=== PATIENT | female | born 1995 | race Caucasian/White ===

== ENCOUNTER → 2024-08-01 09:56 | Outpatient (REF) | payer OTHER, SELFPAY | LOC: RAD 09:56 | PROVIDERS: ATTENDING PHYSICIAN Internal Medicine Cardiovascular Disease; FAMILY PHYSICIAN Nurse Practitioner | DX: Q24.9 Congenital malformation of heart, unspecified (principal); R06.09 Other forms of dyspnea; Q24.5 Malformation of coronary vessels | CPT/HCPCS: 75574; Q9967 ==

== ENCOUNTER 2024-10-04 08:31 | Emergency (ER) | payer OTHER, SELFPAY ==
[2024-10-04 08:32] VITALS: BP 120/85
[2024-10-04 08:54] VITALS: BMI 24.4
--- NOTE | 2024-10-04 09:19 | ED.GENMED ---
History of Present Illness
General
Chief Complaint: Problems
Time Seen by Provider: 10/04/24 08:48
History of Present Illness
History of Present Illness:
29-year-old female, , presenting to the emergency department for bleeding in . Patient reports that she is about 9 weeks by LMP. She notes about 2 weeks ago she started to have some vaginal spotting. Yesterday noticed some
increased bleeding with wiping, and then today prior to arrival, had increased bleeding, did notice some clots. Notes some mild cramping. Denies any abnormal discharge or urinary symptoms. Blood type unknown. Reports other ,
[id number] at home, no complications with this . Denies additional acute medical complaints.
Phy Exam
Physical Exam
Physical Exam:
General: Well-appearing, no clinical signs of dehydration, nontoxic and in no acute distress
HEENT: protecting airway
Neck: appears supple
CV: Normal heart rate
Resp: No accessory muscle use, no increased work of breathing
Abd: Soft and non-distended, no tenderness to palpation
Extremities: No deformities, no swelling
Neuro: alert, no focal neurologic deficit
: deferred
Rectal: deferred
Psych: Normal affect
Skin: Intact
Course
Orders/Labs/Results
Orders:
Orders
10/04/24 09:11
US W Transvaginal Urgent
Reason For Exam: 9 weeks by date, bleeding
10/04/24 09:17
Blood Group&Type Urgent
Beta HCG Quantitative Urgent
Is this a screen?: No
Complete Blood Count/With Diff Urgent
Comprehensive Metabolic Panel Urgent
10/04/24 09:18
Urinalysis Reflex To Culture Urgent
Date Specimen was Collected: 10/04/24
Time Specimen was Collected: 09:16
Urine Microscopic Reflex Cult Urgent
Abnormal Lab Results
10/04/24 10/04/24
09:17 09:18
Lymphocytes % 18.9 L %
(20.5-51.1)
Glucose 103 H mg/dl
(70-99)
Calcium 10.6 H mg/dl
(8.4-10.2)
Ur Occult Blood Reflex 3+ A
(Negative)
Urine RBC 3-6 A /HPF
(0-2)
10/04/24 09:17
10/04/24 09:17
Vital Signs
Initial and Last Documented VS:
Initial Vital Signs
Temp Pulse Resp BP Pulse Ox
98.0 F 92 16 120/85 98
10/04/24 08:32 10/04/24 08:32 10/04/24 08:32 10/04/24 08:32 10/04/24 08:32
Last Documented Vital Signs
Temp Pulse Resp BP Pulse Ox
98.0 F 92 16 128/76 98
10/04/24 08:32 10/04/24 08:32 10/04/24 08:32 10/04/24 11:13 10/04/24 11:15
Information
Weeks gestation: Weeks: (6)
Location: Location: (uterus)
MDM/Problems Addressed
MDM/Problems Addressed:
29-year-old female presenting to the emergency department with vaginal bleeding in , at 9 weeks. Vital signs on arrival are normal.
On exam patient is well-appearing, no acute distress. Patient hemodynamically stable. Patient symptoms are concerning for threatened miscarriage. Bedside ultrasound performed, visualized gestational sac, with possible pole, no yolk sac or
cardiac activity. At this time concern for incomplete miscarriage. Will obtain laboratory analysis including beta quant and ABO Rh. Will also obtain transvaginal ultrasound
11:25 -patient's beta quantitative level is about 11,000. Blood type is a positive, without indication for RhoGAM. Ultrasound with gestational sac and embryo measuring at about 6 weeks, however no heart rate, concerning for embryonic demise.
Did discuss with [facility]IL[facility], plan for follow-up for outpatient repeat beta quantitative testing. Results discussed with patient. She remains hemodynamically stable. Return precautions discussed and patient verbalized understanding
*Critical Care Note
Total Time (30-74mins, 75-104mins- exclusive of procedures): Not Applicable
ED Attending Note
-
Portions of this chart may have been created with voice recognition software.� Occasional wrong word or��sound alike� substitutions may have occurred due to the inherent limitations of voice recognition software.
Discharge Plan
Departure
Patient Disposition: Home (Routine Discharge)
Date of Disposition: 10/04/24
Time of Disposition: 11:45
Patient with high blood pressure during this ER visit?: No
Condition: Good
Discharge Problem:
Threatened miscarriage in early
Instructions: Threatened Miscarriage (DC)
Prescriptions:
No Action
Vitamin
1 tab PO DAILY
sennosides-docusate sodium [Stool Softener-Stimulant Laxat] 8.6-50 mg Tablet
1 tab PO DAILYPRN PRN (Reason: constipation) Qty: 0 0RF
ibuprofen 600 mg Tablet
600 mg PO Q6HPRN PRN (Reason: moderate pain/cramps) Qty: 45 0RF
Referrals:
[facility]o [facility], [Active] -
Shari Mejia CRNP [Family Provider] -
Activity Restrictions/Additional Instructions:
You were seen in the emergency department for bleeding in
You had an ultrasound which was concerning for a miscarriage. Your beta quantitative level was 11,000. You will need to follow-up with your KIL[facility] HAND in 2 to 3 days for repeat beta quantitative testing.
Please follow-up closely with your primary care physician.
Return to the emergency department for any worsening of your symptoms including increased pain, or any development of chest pain, difficulty breathing, abdominal pain with persistent vomiting and inability to tolerate food or liquid by mouth
(concern for dehydration), weakness or lightheadedness, headache or confusion, fever greater than 100.4, or any additional symptoms that are concerning to you.
Thank you for choosing [facility] [place].
Interventions
Interventions:
*Risk Screen - Suicide Last Done: 10/04/24 08:32
*General Assessment Last Done: 10/04/24 08:32
*Neglect/Abuse Screening Last Done: 10/04/24 08:35
ED- Fall Risk Assessment Last Done: 10/04/24 08:54
*ED COVID-19 Vaccine History Last Done: 10/04/24 08:32
*Nursing Disposition Last Done: 10/04/24 11:50
ED-Female Genitourinary Assessment Last Done: 10/04/24 08:54
Discharge Date and Time
Discharge Date/Time: 10/04/24 11:51
Print Language: MAORI
[2024-10-04 09:39] LABS: % Basophils 0.5 % (0-2); % Eosinophils 1.4 % (0-6); % Immature Granulocytes 0.4 % (0-0.5); % Lymphocytes 18.9 % (20.5-51.1); % Monocytes 6.6 % (1.7-9.3); % Neutrophils 72.2 % (42.2-75.2); Absolute Eosinophils 0.1 10^3/uL (0-0.7); Absolute Lymphocytes 1.6 10^3/uL (1.2-3.4); Absolute Monocytes 0.6 10^3/uL (0.1-0.6); Hemoglobin 13.2 g/dL (12.0-16.0); Mean Corp Hgb Conc. 34.7 g/dL (33.0-37.0); Mean Corpuscular Hgb 29.5 pg (27.0-31.0); Mean Corpuscular Volume 84.8 fL (81.0-99.0); Mean Platelet Volume 10.2 fL (7.4-10.4); Nucleated Red Blood Cells % 0 %; Platelet Count 221 10^3/uL (130-400); Red Blood Cell Count 4.48 10^6/uL (4.20-5.40); Red Cell Dist. Width 12.2 % (11.5-14.5); White Blood Cell Count 8.3 10^3/uL (4.8-10.8)
[2024-10-04 09:53] LABS: ALT (SGPT) 35 U/L (0-35); AST (SGOT) 29 U/L (14-36); Alkaline Phosphatase 62 U/L (38-126); Blood Urea Nitrogen 12 mg/dl (7-17); Calcium 10.6 mg/dl (8.4-10.2); Carbon Dioxide 23 mmol/L (22-30); Chloride 105 mmol/L (98-107); Estimated Creatinine Clearance 104 ml/min; Glucose 103 mg/dl (70-99); Potassium 4.4 mmol/L (3.5-5.1); Sodium 143 mmol/L (135-145); Total Bilirubin 0.4 mg/dl (0.2-1.3); Total Protein 7.8 g/dl (6.3-8.2); eGFR > 60.00
[2024-10-04 10:16] LABS: Urine Albumin Negative (Neg - Trace); Urine Bilirubin Negative (Negative); Urine Character Clear (Clear); Urine Color Yellow; Urine Glucose Negative (Negative); Urine Ketone Negative (Negative); Urine Leukocyte Negative (Negative); Urine Nitrite Negative (Negative); Urine Occult Blood 3+ (Negative); Urine Specific Gravity 1.005 (<1.030); Urine Urobilinogen Negative (Neg - 1+)
[2024-10-04 11:07] LABS: Urine Amorphous Seen; Urine Urothelial Cell 0-2 /LPF (FEW)
[2024-10-04 11:08] LABS: Urine White Cell 0-2 /HPF (0-5)
[2024-10-04 11:13] VITALS: BP 128/76
== END 2024-10-04 11:51 | disposition home or self-care (01) ==
LOC: EMR 08:31
PROVIDERS: EMERGENCY PHYSICIAN Student in an Organized Health Care Education/Training Program; FAMILY PHYSICIAN Nurse Practitioner
DX: O20.0 Threatened abortion (principal); Z3A.09 9 weeks gestation of pregnancy
CPT/HCPCS: 99284; 76801; 76817; 80053; 81003; 81015; 84702; 85025; 86900; 86901

== ENCOUNTER → 2025-05-21 13:28 | Outpatient (REF) | payer OTHER, SELFPAY | LOC: PNTC 13:28 | PROVIDERS: ATTENDING PHYSICIAN Student in an Organized Health Care Education/Training Program | DX: Z36.0 Encounter for antenatal screening for chromosomal anomalies (principal); Z36.82 Encounter for antenatal screening for nuchal translucency | CPT/HCPCS: 76801; 76813 ==

== ENCOUNTER 2025-10-13 12:03 | Observation (INO) | payer OTHER, SELFPAY ==
[2025-10-13 12:17] VITALS: BP 134/71; BMI 29.2
[2025-10-13] MEDS: LR 1000 IV (12:20)
[2025-10-13 12:32] LABS: Hematocrit 35.2 % (37.0-47.0); Hemoglobin 12.1 g/dL (12.0-16.0); Mean Corp Hgb Conc. 34.4 g/dL (33.0-37.0); Mean Corpuscular Volume 87.3 fL (81.0-99.0); Nucleated Red Blood Cells % 0 %; Platelet Count 193 10^3/uL (130-400); Red Cell Dist. Width 12.1 % (11.5-14.5)
[2025-10-13 12:47] LABS: ALT (SGPT) 16 U/L (0-35); AST (SGOT) 23 U/L (14-36); Albumin 4.3 g/dl (3.5-5.0); Alkaline Phosphatase 109 U/L (38-126); Blood Urea Nitrogen 9 mg/dl (7-17); Calcium 9.0 mg/dl (8.4-10.2); Carbon Dioxide 20 mmol/L (22-30); Chloride 108 mmol/L (98-107); Estimated Creatinine Clearance > 125 ml/min; Glucose 95 mg/dl (70-99); Potassium 3.7 mmol/L (3.5-5.1); Sodium 134 mmol/L (135-145); Total Protein 7.8 g/dl (6.3-8.2); eGFR > 60.00
[2025-10-13 12:52] LABS: Urine Character Slightly Cloudy (Clear)
[2025-10-13 13:19] LABS: Urine Red Blood Cell >100 /HPF (0-2)
[2025-10-13 13:21] LABS: Urine Squamous Cell >30 /LPF (Few)
[2025-10-13] MEDS: ANCEF 5 IV (13:33)
== END 2025-10-13 14:30 | disposition home or self-care (01) ==
LOC: LDRP 12:03
PROVIDERS: ADMITTING PHYSICIAN Obstetrics & Gynecology; FAMILY PHYSICIAN Nurse Practitioner
DX: O26.893 Other specified pregnancy related conditions, third trimester (principal); R31.9 Hematuria, unspecified; Z3A.33 33 weeks gestation of pregnancy; Z88.5 Allergy status to narcotic agent
CPT/HCPCS: 59025; 76770; 80053; 81003; 81015; 82570; 84156; 85025; 86850; 86900; 86901; 87086; G0378